=== PATIENT | male | born 1975 | race Caucasian/White ===

== ENCOUNTER → 2021-01-17 | Outpatient (CLI) | payer BC ==
[2021-01-18 08:39] LABS: SARS COV-2 IGG AB Positive (Negative)
[2021-01-18 14:20] LABS: SARS COV-2 IGM AB Positive (Negative)
== END ==
LOC: LAB 10:26
PROVIDERS: Internal Medicine
DX: U07.1 COVID-19 (principal)
CPT/HCPCS: 36415; 86769